=== PATIENT | male | born 1990 | race Caucasian/White ===

== ENCOUNTER 2022-12-07 07:55 | Emergency (ER) | payer SELFPAY ==
[2022-12-07 07:58] VITALS: BP 163/106; PULSE 100; RESP 16; TEMP 36.6; O2SAT 97
--- NOTE | 2022-12-07 08:00 | DI.RAD_ITS ---
Exam(s) XR KNEE RT 3V AP,LAT,AISHWARYA EXAM: XR KNEE RT 3V AP,LAT,AISHWARYA CLINICAL HISTORY: right knee pain and swelling. TECHNIQUE: 2D digital imaging was performed. Three views. COMPARISON: No exams were available for comparison FINDINGS: BONES: No acute fracture is present. No bony destructive lesion is seen. JOINTS: The knee is normally aligned. No joint effusion is seen. Mild periarticular spurring. SOFT TISSUE: Normal. IMPRESSION: Mild degenerative changes DATA REPOSITORY: RADIATION DOSE DELIVERED:
--- NOTE | 2022-12-07 08:02 | ED.GENADUL_ITS ---
Discharge Plan Disposition Patient Disposition: Home Condition: Good Discharge Details Chief Complaint: Orthopedic Clinical Impression: Tear of medial meniscus of right knee Primary Care Provider: None,None ED Provider: Cinda Rosado Home Meds and New Rx's Prescriptions: No Action ibuprofen 800 MG tablet 800 mg PO Q8H PRN (Reason: Pain) Qty: 15 0RF multivitamin 1 EACH capsule 1 cap PO DAILY Discharge Instructions Instructions: Swollen Knee Joint (ED), Meniscus Tear (ED) Additional Instructions: 1. Alternate at times milligrams of acetaminophen with 400 to 600 mg of ibuprofen as needed for pain. 2. Wear your knee brace while at work and when ambulating. You may remove it for sleeping and bathing. You may use your crutches as needed for ambulation. 3. You should recheck your blood pressure when you are not in pain or under stress. I would keep a log of the readings to bring with you to your primary care follow-up. 4. You should be contacted by orthopedics and primary care for follow-up appointments. 5. Return to the emergency department for any new or worrisome symptoms such as fever, chills, other joint pain or any concerns. Stand Alone Forms: Work Release Discharge Data Discharge Physician: Cinda Rosado Medical Decision Making This is a 32-year-old male who injured his right knee several years ago and has had intermittent right knee pain since then. Several days ago while vacuuming he pivoted had acute pain in the right knee. He does endorse intermittent swelling. He denies any other joint pain or swelling. He denies any rashes or fever. He denies any recent tick bites. This is most likely a meniscal tear given that he has intermittent effusions. Other considerations are an ACL or PCL tear although the pain is in the medial aspect of the right knee. He does e ndorse a clicking/foreign body sensation in the right knee which would also be consistent with a tear of the medial meniscus. My plan is to obtain plain films and if negative discharge him with a knee brace. He already has crutches. We will give him a referral to orthopedics and primary care and I will write him a note to return to work in 3 days. He is mildly hypertensive. We will recheck it and I have advised him to have his blood pressure checked at a time when he is not in pain or under stress. We will also give him a referral to primary care. I do not think he has a tickborne illness. Differential Diagnosis Differential Diagnosis: Tear of the right medial meniscus, medial collateral ligamentous tear Medical Records Medical records reviewed: Yes I reviewed the patient's medical records. Imaging Data Radiologic Study: Imaging: X-Ray (Right knee) Radiologist's impression: Mild degenerative changes. HPI General Mode of arrival: ambulatory . Date/Time Provider Initiated Documentation: 12/07/22 08:02 . Limitations to Documentation: no limitations . Information obtained by: patient, RN notes reviewed and old records reviewed . History of Present Illness described as similar to prior episodes, with intensity rated at 8. Quality is described as aching and constant, HPI Narrative: Time seen was 8:02 AM in bed 8. The patient is a healthy 32-year-old male who tells me a few years ago he rolled his knee and developed pain in the right knee. He did not seek medical care at the initial injury. Over the past several years he has noted intermittent right knee pain associated with a popping sensation. A few days ago while vacuuming at home he pivoted and felt a pop in the right knee. The next day he had increasing pain. He is now complaining of a constant pain that ranges from 6-8 out of 10 in severity. He has associated intermittent swelling. He has sensation of loose body inside his knee. He also complains of mild clicking. He has crutches at home which she has been using as needed. He takes ibuprofen intermittently as needed. He denies any radiation of the pain. The pain is aggravated by ambulation and pivoting. He denies any other joint pain, fever or chills, rashes or tick bites. 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 He denies any calf pain or swelling, chest pain, shortness of breath, rashes or any additional symptoms. He would like to return to work. He currently does not have a primary care provider and has not seen anyone else for the knee pain. Related Data Home Medications Medication Instructions Recorded Confirmed multivitamin 1 cap PO DAILY 01/05/17 04/03/17 ibuprofen 800 mg tablet 800 mg PO Q8H PRN Pain ##15 04/03/17 Previous Rx's Medication Instructions Recorded ibuprofen 800 mg tablet 800 mg PO Q8H PRN Pain ##15 04/03/17 Allergies Allergy/AdvReac Type Severity Reaction Status Date / Time house dust AdvReac Mild Unverified 04/03/17 12:14 Review of Systems Narrative: see hpi Constitutional Constitutional: Denies chills, Denies fever(s) and Denies headache(s) ENT Ears, Nose, Mouth, and Throat: Denies headache(s) Cardiovascular Cardiovascular: Denies chest pain and Denies dyspnea Respiratory Respiratory: Denies dyspnea Gastrointestinal Gastrointestinal: Denies abdominal pain Musculoskeletal Musculoskeletal: Denies numbness and Denies tingling Comments: No other joint pain or swelling other than the right knee Integumentary/Breasts Skin/Breast: Reports as per HPI and Denies rash Comments: No rashes. No tick bites, no redness. Neurologic Neurologic: Denies headache(s), Denies numbness and Denies tingling Allergic/Immunologic Allergic/Immunologic: Reports system reviewed and no additional complaints, except as documented PFSH All Active Problems (Updated 12/07/22 @ 08:44 by Cinda Rosado MD) Tear of medial meniscus of right knee (Acute) Social History Smoking/Tobacco Use Status: Never Smoking risk assessment performed?: Yes Drug use: Never Do you feel safe in your relationship?: Yes Exam Narrative Exam Narrative: The patient is a well-developed well-nourished male who is slightly hypertensive with an elevated BMI. He is not febrile. His GCS is 15. Const General: cooperative, healthy appearing, comfortable, no acute distress, well developed, well groomed and well hydrated Nutritional Appearance: average body habitus and well nourished Orientation: alert, awake and oriented x3 HENMT Head: normal to inspection, normocephalic and atraumatic Ears: hearing grossly normal bilaterally and external ears normal General nose exam: external nose normal, nares normal and no nasal discharge Face and sinus: normal facial exam, sinuses nontender and face symmetric Mouth: other (Normal phonation. The patient is handling secretions.) Eyes General: appearance normal, both eyes and all related structures Eyelids: eyelids normal Conjunctivae: conjunctivae normal Sclera: sclerae normal Cornea: corneas normal Pupils: PERRL EOM: EOM intact bilaterally and No nystagmus Neck Neck: normal visual inspection, full ROM, no lymphadenopathy, no meningeal signs, trachea midline and supple Lymphatic: no lymphadenopathy noted Chest Chest: normal inspection of the chest Resp Effort & Inspection: normal respiratory effort, able to speak in complete sentences, no audible wheezes, no nasal flaring, no respiratory distress, no retractions, no stridor, not tachypneic, no tracheal deviation, no use of accessory muscles, No prolonged expiratory phase and other (Normal inspiratory to expiratory ratio.) Auscultation: clear to auscultation bilaterally, no rales, no rhonchi, no wheezes and no rubs Tactile Fremitus: tactile fremitus absent Cardio Jugular venous pressure: no JVD Palpation: normal PMI Rate: regular rate Rhythm: regular rhythm Heart Sounds: S1 normal, S2 normal, no gallops, no murmurs and no rubs GI Inspection: non-distended Palpation: soft, no guarding and nontender Back/Spine/Pelvis Back: no CVA tenderness and No back tenderness Cervical Spine: normal cervical lordosis, cervical ROM normal, No cervical muscular tenderness, No pain with cervical ROM, No cervical spinal tenderness and No step off deformity Thoracic/Lumbar Spine: thoracic and lumbar spine normal to inspection, No thoracic spinal tenderness and No lumbar spinal tenderness Skin General skin exam: no rashes or lesions noted, turgor normal, no petechiae, no purpura and other (Skin is normal for ethnicity.) Lesions: no lesions Rashes: no rashes Trauma: no lacerations or abrasions Neuro General: patient alert, patient awake, patient oriented x3, moves all extremities, no meningeal signs, no focal motor deficits and CN's II-XI intact bilaterally Cranial Nerves: CN's II-XI intact bilaterally, PERRL, accommodation normal, EOM intact bilaterally, no nystagmus, facial strength normal, hearing normal and no nystagmus Cognition: normal cognition Speech: speech normal Motor: muscle tone normal throughout and strength 5/5 throughout Sensory Exam: no sensory deficits noted Extrem General: normal to inspection, full ROM, capillary refill normal, no clubbing, cyanosis or edema and no calf tenderness Other: His extremities are within normal limits. Except for the right knee. There is no obvious swelling. He has full range of motion of his right hip, knee, ankle and foot. There is no obvious effusion. There is no warmth or erythema. There is no laxity with anterior draw sign or with varus or valgus stressing. He is neurovascular intact distally. The remainder of the extremities unremarkable. Psych Appearance: grossly normal Affect: normal affect Attitude: cooperative Thought Process: normal Thought Content: normal Insight: insight good Judgment: judgment good Other: The patient appears to have capacity make medical decisions. Course The patient was offered but declined acetaminophen. Reevaluation(s) Time: 08:48 Reevaluation: I have reviewed the patient's x-rays. I have advised him that he will have follow-up with orthopedics and primary care. I have advised him to alternate acetaminophen every 3 hours with ibuprofen as needed for pain and to return to emergency department for any new or worrisome symptoms. He voiced understanding agree with the discharge plan. All his questions and concerns were addressed prior to discharge
--- NOTE | 2022-12-07 08:17 | NUR.NOTE ---
Pt referred to Ortho care due to Rt Knee Pain. Pt referred to Care Management for assistance obtaining a Provider. Nursing Note:
[2022-12-07 08:40] VITALS: BP 164/107; PULSE 88; O2SAT 97
--- NOTE | 2022-12-07 20:16 | NUR.NOTE ---
Pt placed on care management list to establish primary care.
== END 2022-12-07 09:06 | disposition home or self-care (01) ==
PROVIDERS: Emergency Provider Emergency Medicine Emergency Medical Services
DX: S83.241A Other tear of medial meniscus, current injury, right knee, initial encounter (principal); X50.1XXA Overexertion from prolonged static or awkward postures, initial encounter; Y93.E3 Activity, vacuuming; Y92.012 Bathroom of single-family (private) house as the place of occurrence of the external cause; Y99.9 Unspecified external cause status
CPT/HCPCS: 73562; 99283

== ENCOUNTER 2022-12-28 08:30 | Emergency (ER) | payer SELFPAY ==
[2022-12-28 08:34] VITALS: BP 148/80; PULSE 85; RESP 20; TEMP 36.8; O2SAT 98
--- NOTE | 2022-12-28 09:19 | NUR.NOTE ---
Pt referred to Care Management for assistance obtaining a Primary Care Provider.
--- NOTE | 2022-12-28 09:22 | ED.GENADUL_ITS ---
Discharge Plan Disposition Patient Disposition: Home Condition: Stable Discharge Details Clinical Impression: Acute knee pain Primary Care Provider: Unknown,Unknown ED Provider: Leelee Villatoro Home Meds and New Rx's Prescriptions: Continued ibuprofen 800 MG tablet 800 mg PO Q8H PRN (Reason: Pain) Qty: 15 0RF multivitamin 1 EACH capsule 1 cap PO DAILY Discharge Instructions Instructions: Knee Pain (ED) Additional Instructions: Please follow-up as needed Stand Alone Forms: Work Release Discharge Data Discharge Date/Time-TO BE ENTERED AT DEPARTURE: 12/28/22 09:18 Medical Decision Making 31-year-old male presenting for return to work note, right knee without swelling or tenderness, complete range of motion intact, referred back to primary care physician for further management and treatment, work note supplied, distal pulses intact, no redness, no calf swelling or tenderness appreciated, sensation intact distally Return precautions reviewed and patient expressed understanding HPI General Date/Time Provider Initiated Documentation: 12/28/22 09:02 . HPI Narrative: 32-year-old gentleman presents with resolution of his right knee pain which is thought to be meniscal in nature, requesting to return to work. Denies any current complaints. Related Data Home Medications Medication Instructions Recorded Confirmed multivitamin 1 cap PO DAILY 01/05/17 12/28/22 ibuprofen 800 mg tablet 800 mg PO Q8H PRN Pain ##15 04/03/17 12/28/22 Previous Rx's Medication Instructions Recorded ibuprofen 800 mg tablet 800 mg PO Q8H PRN Pain ##15 04/03/17 Allergies Allergy/AdvReac Type Severity Reaction Status Date / Time house dust AdvReac Mild Unverified 04/03/17 12:14 General Stated Complaint: Recheck LUKAS: 5 PFSH All Active Problems (Updated 12/28/22 @ 09:08 by STEVE Bailon) Acute knee pain (Acute) Tear of medial meniscus of right knee (Acute) Social History Smoking/Tobacco Use Status: Never Smoking risk assessment performed?: Yes Alcohol Intake: current Alcohol Intake frequency: a few times a week Alcohol type: beer Drug use: Occasionally Substance use type: marijuana Housing: house Do you feel safe at home: Yes Do you feel safe in your relationship?: Yes Course Vital Signs Vital signs: Vital Signs Temperature 36.8 C 12/28/22 08:34 Pulse 85 12/28/22 08:34 Respiratory Rate 20 12/28/22 08:34 Blood Pressure 148/80 H 12/28/22 08:34 Pulse Oximetry 98 12/28/22 08:34 Temperature 36.8 C 12/28/22 08:34 Temperature Source Oral 12/28/22 08:34 Pulse 85 12/28/22 08:34 Respiratory Rate 20 12/28/22 08:34 Respiratory Effort Normal, Non-Labored 12/28/22 08:51 Blood Pressure 148/80 H 12/28/22 08:34 Blood Pressure Position Sitting 12/28/22 08:34 Pulse Oximetry 98 12/28/22 08:34 Oxygen Delivery Method Room Air 12/28/22 08:34 Oxygen Flow Rate 0 12/28/22 08:34 Pain Level 0 12/28/22 08:34
== END 2022-12-28 09:18 | disposition home or self-care (01) ==
PROVIDERS: Emergency Provider Physician Assistant
DX: M25.561 Pain in right knee (principal)

== ENCOUNTER 2023-07-20 08:38 | Emergency (ER) | payer SELFPAY ==
[2023-07-20 08:47] VITALS: BP 169/100; PULSE 76; RESP 18; TEMP 36.5; O2SAT 98
--- NOTE | 2023-07-20 09:03 | ED.GENADUL_ITS ---
Discharge Plan Disposition Patient Disposition: Home Condition: Stable Discharge Details Clinical Impression: Popping of right knee joint, Elevated blood pressure reading Primary Care Provider: Unknown,Unknown ED Provider: Gianni Beltran Home Meds and New Rx's Prescriptions: Continued ibuprofen 800 MG tablet 800 mg PO Q8H PRN (Reason: Pain) Qty: 15 0RF multivitamin 1 EACH capsule 1 cap PO DAILY Discharge Instructions Instructions: Hypertension (ED) Additional Instructions: Your blood pressure was elevated today at 169/100. This is too high. Please follow-up with the primary care physician. Additional diagnostic testing and treatment may be necessary. Please use knee immobilizer and crutches over the next 1 week. Limit activities that cause pain. Apply ice and elevate the leg for 10 to 15 minutes 4 times a day. Please follow-up with orthopedics. Return to the ER immediately for any worsening or new concerning symptoms. Stand Alone Forms: Work Release Referrals: [facility] [Provider Group] HPI General Mode of arrival: ambulatory . Date/Time Provider Initiated Documentation: 07/20/23 09:03 . Limitations to Documentation: no limitations . Information obtained by: patient . HPI Narrative: 33-year-old male presents with chief complaint of right knee pain. Patient notes he was getting up to the bathroom this morning and felt a popping sensation in his knee. He had pain since the incident. Denies falling or direct trauma. Patient notes this has happened multiple times in the past after a remote injury playing softball. He has been told he has a torn meniscus and is not yet sought surgical intervention. Patient here specifically requesting work note through Monday to allow him to rest. He has no other concerns or complaints. Related Data Home Medications Medication Instructions Recorded Confirmed multivitamin 1 cap PO DAILY 01/05/17 07/20/23 ibuprofen 800 mg tablet 800 mg PO Q8H PRN Pain ##15 04/03/17 07/20/23 Previous Rx's Medication Instructions Recorded ibuprofen 800 mg tablet 800 mg PO Q8H PRN Pain ##15 04/03/17 Allergies Allergy/AdvReac Type Severity Reaction Status Date / Time house dust AdvReac Mild Other (See Unverified 07/20/23 08:51 Comment) General Stated Complaint: Orthopedic LUKAS: 4 Review of Systems All systems reviewed & are unremarkable except as noted in HPI and below Constitutional Constitutional: Denies fever(s) Exam Const General: cooperative and no acute distress Cardio Rate: regular rate and not tachycardic Rhythm: regular rhythm Neuro General: patient alert, patient awake and tone normal Extrem General: no edema Right lower extremity: knee Details: swelling, normal ROM and other (patella nl); no tenderness and no ecchymosis Course Vital Signs Vital signs: Vital Signs Temperature 36.5 C 07/20/23 08:47 Pulse 76 07/20/23 08:47 Respiratory Rate 18 07/20/23 08:47 Blood Pressure 169/100 H 07/20/23 08:47 Pulse Oximetry 98 07/20/23 08:47 Temperature 36.5 C 07/20/23 08:47 Temperature Source Temporal Artery Scan 07/20/23 08:47 Pulse 76 07/20/23 08:47 Respiratory Rate 18 07/20/23 08:47 Respiratory Effort Normal, Non-Labored 07/20/23 08:51 Blood Pressure 169/100 H 07/20/23 08:47 Blood Pressure Position Sitting 07/20/23 08:47 Pulse Oximetry 98 07/20/23 08:47 Oxygen Delivery Method Room Air 07/20/23 08:47 Oxygen Flow Rate 0 07/20/23 08:47 Medical Decision Making 33-year-old male with history of intermittent popping sensation and subsequent discomfort of his right knee over the past few years after softball injury. Patient had an episode this morning while ambulating to the bathroom. Suspect meniscal injury. Plan for knee immobilizer and crutches and follow-up with orthopedics. Usual customary discharge instructions reviewed. Also noted was elevated blood pressure. Patient was informed of this. He was advised to follow-up with a primary care physician and understands importance of this follow-up. Quality:SDOH Health Related Social Needs: No Data to Display PFSH All Active Problems (Updated 07/20/23 @ 09:17 by Gianni Beltran MD) Elevated blood pressure reading (Acute) Popping of right knee joint (Acute) Social History Smoking/Tobacco Use Status: Never Smoking risk assessment performed?: Yes Alcohol Intake: current Alcohol Intake frequency: a few times a week Alcohol type: beer Drug use: Daily Substance use type: marijuana Housing: house Do you feel safe at home: Yes Do you feel safe in your relationship?: Yes PAWSS Have you Been Recently Intoxicated or Drunk Within the Last 30 days?: No Have you Ever Experienced Previous Episodes of Alcohol Withdrawal?: No Have you ever Experienced Withdrawal Seizures?: No Have you ever Experienced Delirium Tremens(DT)s?: No Have you ever undergone Alcohol Rehabilitation Treatment (i.e, inpt ot outpatient treatment programs)?: No Have you ever Experienced Blackouts?: No Have you ever Combined Alcohol with other Downers within the last 90 days?: No Have you ever Combined Alcohol with any other Substance of Abuse during the last 90 days?: No Positive Blood Alcohol level on Presentation? [PCS.BAL]: No Evidence of Increased Autonomic Activity (i.e. HR>120, tremor, sweating, ag itation, nausea)?: No Result: 0
== END 2023-07-20 09:23 | disposition home or self-care (01) ==
PROVIDERS: Emergency Provider Student in an Organized Health Care Education/Training Program
DX: M25.561 Pain in right knee (principal); R29.898 Other symptoms and signs involving the musculoskeletal system; R03.0 Elevated blood-pressure reading, without diagnosis of hypertension
CPT/HCPCS: 99282; 99283

== ENCOUNTER 2023-08-17 08:32 | Emergency (ER) | payer SELFPAY ==
--- NOTE | 2023-08-17 08:30 | DI.RAD_ITS ---
Exam(s) XR KNEE RT 4V AP,LAT,AISHWARYA,PAT EXAM: XR KNEE RT 4V AP,LAT,AISHWARYA,PAT CLINICAL HISTORY: Right knee pain. TECHNIQUE: 2D digital imaging was performed of the right knee. Five views obtained. Merchant, AP, la teral and PA tunnel views were obtained. COMPARISON: CR XR KNEE RT 3V AP,LAT,AISHWARYA from 12/07/2022 FINDINGS: BONES: No acute fracture is present. No bony destructive lesion is seen. JOINTS: There is mild narrowing of the medial femoral tibial joint. Osteophytes are seen in all 3 efren int compartments. No joint effusion is seen. SOFT TISSUE: Normal. IMPRESSION: Mild degenerative changes are seen in the right knee. DATA REPOSITORY: RADIATION DOSE DELIVERED:
[2023-08-17 08:35] VITALS: BP 176/102; PULSE 84; RESP 18; O2SAT 97
--- NOTE | 2023-08-17 08:38 | W.ED.GENAD ---
Discharge Plan Disposition Patient Disposition: Home Discharge Details Clinical Impression: Popping of right knee joint, Blood pressure elevated without history of HTN Primary Care Provider: Unknown,Unknown ED Provider: Kiet Freeman Home Meds and New Rx's Prescriptions: Continued ibuprofen 800 MG tablet 800 mg PO Q8H PRN (Reason: Pain) Qty: 15 0RF multivitamin 1 EACH capsule 1 cap PO DAILY Discharge Instructions Additional Instructions: You were seen in the emergency department for your knee pain. Your x-ray showed no sign of any fractures. You are receiving a work note. Please return to the emergency department if you develop fevers worsening pain or any difficulty breathing. A primary care provider has been contacted for you by care management. They will follow-up as you have an elevated blood pressure and may likely need to start on blood pressure medicines. Stand Alone Forms: Work Release HPI General Date/Time Provider Initiated Documentation: 08/17/23 08:38. HPI Narrative: MDM This is an overall very well-appearing normothermic and not tachycardic 33-year-old male with acute on chronic right knee pain for which patient will undergo repeat plain films. No pain out of proportion to suggest necrotizing soft tissue infection. No significant trauma to suggest knee dislocation so I did not feel that the patient required an angiogram of his lower extremity to assess for popliteal arterial injury. No calf pain to suggest DVT. Good range of motion of the right knee and no fevers so doubt septic joint. Right foot warm and well-perfused so I am not concerned for critical limb ischemia. Good range of motion and no swelling so my suspicion is low for gout. No erythema to suggest cellulitis. No fluctuance to suggest abscess. No erythema to suggest Lyme arthritis. Patient is able to straight leg raise so I am not concerned for quadriceps tendon injury. Patient requested a work note which I will provide him. He has a knee immobilizer and crutches. 9:45 AM Plain films negative for any acute osseous abnormalities. I have asked health community support associate Renee to have the patient seen in the next 10 days by primary care provider as he has never had a normal blood pressure reading throughout all his hospital visits. I advised him of his elevated blood pressures and said that he would likely benefit from reassessment in the primary care office with the potential for outpatient oral antihypertensives. I advised him to return to the ED for any fevers or worsening pain. He understood his return indications and was discharged with empiric trial of expectant outpatient management. Chronic conditions affecting the care of the patient: N/A History obtained from an outside historian: N/A External record review: N/A Medications: Patient declined oral analgesia in the ED but received ice Social determinants of health affecting disposition: N/A Management discussed with: N/A Treatment/interventions considered: N/A Response to therapies provided: N/A HPI This is a 33-year-old male with no past significant medical history arrived to the emergency department via private vehicle in the setting of right knee pain. Patient reports that he he was seen earlier this month with right knee pain. He said that last night when he rolled over in bed he felt a popping in his right knee. He did not take any falls. He has never had any surgeries to his right knee. He did drink beers last night but he does not drink every day. Denies history of withdrawal. He works standing on his feet at a [employer]. He is requesting a work note. He denies any numbness and tingling in his right foot. No fevers no shortness of breath. No history of gout. No recent tick bites. Past 2 return to work in 2 days. He has no pain in his calf. He is aware that he has elevated blood pressure. Exam General: Well-appearing in no acute distress speaking in complete sentences. Head: Normocephalic, atraumatic. Eye: Extraocular eye movements intact. No conjunctival injection. No scleral icterus. Ear, nose, mouth, throat: Grossly normal inspection. Normal voice, handling secretions normally. Neck: Trachea midline. Cardiovascular: Well-perfused distal extremities. Respiratory: Nonlabored respiration. Gastrointestinal: Nondistended abdomen. Musculoskeletal: Right knee with no significant trauma. No significant laxity. No lacerations to right knee. No ecchymoses. Right foot warm and well-perfused with 2+ right PT and DP pulse. 5 out of 5 strength right foot dorsi and plantarflexion. Patient is able to straight leg raise on the right. His calf is no tenderness. He is able to fully extend his right knee. He is able to flex his right knee to approximately 90 degrees. No significant right knee effusion. Skin: Normal for age and race, grossly normal temperature and turgor. No acute rash. Neurologic: Alert and appropriate, no apparent acute deficits. GCS 15. Psychiatric: Mood and manner are appropriate. Grooming and personal hygiene are appropriate. Related Data Home Medications Medication Instructions Recorded Confirmed multivitamin 1 cap PO DAILY 01/05/17 08/17/23 ibuprofen 800 mg tablet 800 mg PO Q8H PRN Pain ##15 04/03/17 08/17/23 Previous Rx's Medication Instructions Recorded ibuprofen 800 mg tablet 800 mg PO Q8H PRN Pain ##15 04/03/17 Allergies Allergy/AdvReac Type Severity Reaction Status Date / Time house dust AdvReac Mild Other (See Unverified 08/17/23 08:43 Comment) General Stated Complaint: Orthopedic LUKAS: 4 Course Vital Signs Vital signs: Vital Signs Pulse 84 08/17/23 08:35 Respiratory Rate 18 08/17/23 08:35 Blood Pressure 176/102 H 08/17/23 08:35 Pulse Oximetry 97 08/17/23 08:35 Pulse 84 08/17/23 08:35 Respiratory Rate 18 08/17/23 08:35 Blood Pressure 176/102 H 08/17/23 08:35 Pulse Oximetry 97 08/17/23 08:35 Oxygen Delivery Method Room Air 08/17/23 08:35 Oxygen Flow Rate 0 08/17/23 08:35 Medical Decision Making Quality:SDOH Health Related Social Needs: No Data to Display PFSH All Active Problems (Updated 08/17/23 @ 08:46 by Kiet Freeman MD) Blood pressure elevated without history of HTN (Acute) Elevated blood pressure reading (Acute) Popping of right knee joint (Acute) Social History Smoking/Tobacco Use Status: Never Smoking risk assessment performed?: Yes Alcohol Intake: current Alcohol Intake frequency: a few times a week Alcohol type: beer Drug use: Daily Substance use type: marijuana Housing: house Do you feel safe at home: Yes Do you feel safe in your relationship?: Yes
[2023-08-17 08:42] VITALS: TEMP 37.1
[2023-08-17 09:56] VITALS: BP 144/102; PULSE 83; RESP 18; O2SAT 95
== END 2023-08-17 10:10 | disposition home or self-care (01) ==
LOC: ER 08:51
PROVIDERS: Emergency Provider Emergency Medicine
DX: M25.561 Pain in right knee (principal); R03.0 Elevated blood-pressure reading, without diagnosis of hypertension
CPT/HCPCS: 99283; 73564

== ENCOUNTER 2024-06-20 08:52 | Emergency (ER) | payer SELFPAY ==
[2024-06-20 08:54] VITALS: BP 172/115; PULSE 76; TEMP 36.5; O2SAT 96
--- NOTE | 2024-06-20 09:10 | ED.GENADUL_ITS ---
Discharge Plan Disposition Patient Disposition: Home Condition: Stable Discharge Details Clinical Impression: Head injury ED Provider: Lily Tatum Home Meds and New Rx's Prescriptions: No Action ibuprofen 800 MG tablet 800 mg PO Q8H PRN (Reason: Pain) Qty: 15 0RF multivitamin 1 EACH capsule 1 cap PO DAILY Discharge Instructions Instructions: Minor Head Injury, Adult ED Stand Alone Forms: Work Release Discharge Data Discharge Physician: Lily Tatum [facility] General Date/Time Provider Initiated Documentation: 06/20/24 09:04 . HPI Narrative: 34-year-old male presents for evaluation of head injury. Patient states that he went out to get his mail this morning when he slipped and fell on ice. He hit the back of his head. He did not have any loss of consciousness. He states that he was dazed briefly. Denies any headache. No nausea or vomiting. No numbness or tingling to his extremities. No weakness in his extremities. No visual changes. No neck or back pain. He is not on any blood thinners. Related Data Home Medications ?Medication ?Instructions ?Recorded ?Confirmed multivitamin 1 cap PO DAILY 01/05/17 06/20/24 ibuprofen 800 mg tablet 800 mg PO Q8H PRN Pain ##15 04/03/17 06/20/24 Previous Rx's ?Medication ?Instructions ?Recorded ibuprofen 800 mg tablet 800 mg PO Q8H PRN Pain ##15 04/03/17 Allergies Allergy/AdvReac Type Severity Reaction Status Date / Time house dust AdvReac Mild Other (See Unverified 06/20/24 08:57 Comment) General Stated Complaint: HeadInjury LUKAS: 3 Review of Systems Narrative: Remainder of review of systems otherwise negative except for as noted in the HPI x 10. Exam Narrative Exam Narrative: General: non-toxic, no respiratory distress, comfortable HEENT: normocephalic, atraumatic, lids and lashes normal, PERRL, EOMI, anicteric sclera, no conjunctival injection, TMs clear bilaterally, moist oral mucosa Neck: No vertebral tenderness Card: regular rate and rhythm, S1S2, no murmurs, rubs, or gallops Lungs: good air entry, clear to auscultation bilaterally. no wheezes, rales, rhonchi, or retractions Abd: soft, non-tender, non-distended, normal bowel sounds, no rebound or guarding, no peritoneal signs Musculoskeletal: No vertebral tenderness, full range of motion of arms and legs, no tenderness to palpation. no clubbing, cyanosis, or edema Neurologic: Neurologic exam: GSC 15, CN 2-12 intact bilaterally, speech normal, strength normal, sensation intact distally in all four extremities, gait normal, 2+ biceps tendon reflexes, normal finger to nose, normal rapid alternating movements, no pronator drift Psych: alert and oriented Skin: no petechiae, no lesions, warm and dry Course Vital Signs Vital signs: Vital Signs Temperature 36.5 C 06/20/24 08:54 Pulse 76 06/20/24 08:54 Blood Pressure 172/115 H 06/20/24 08:54 Pulse Oximetry 96 06/20/24 08:54 Temperature 36.5 C 06/20/24 08:54 Temperature Source Oral 06/20/24 08:54 Pulse 76 06/20/24 08:54 Blood Pressure 172/115 H 06/20/24 08:54 Blood Pressure Position Sitting 06/20/24 08:54 Pulse Oximetry 96 06/20/24 08:54 Oxygen Delivery Method Room Air 06/20/24 08:54 Oxygen Flow Rate 0 06/20/24 08:54 Medical Decision Making 34-year-old male presents for evaluation of head injury. At time my evaluation he is neurologically intact. NIH of score equals 0. No vertebral tenderness. No signs or symptoms of intracranial hemorrhage. Patient neurologically intact. CT not indicated at this time. Patient counseled on post-concussive syndrome and signs/symptoms requiring re-evaluation. Patient agrees with plan and will return with worsening symptoms. Quality:SDOH Health Related Social Needs: No Data to Display PFSH All Active Problems Head injury (Acute) Social History Smoking/Tobacco Use Status: Never Smoking risk assessment performed?: Yes Alcohol Intake: current Alcohol Intake frequency: a few times a week Alcohol type: beer Drug use: Daily Substance use type: marijuana Housing: house Do you feel safe at home: Yes Do you feel safe in your relationship?: Yes PAWSS Have you Been Recently Intoxicated or Drunk Within the Last 30 days?: No Have you Ever Experienced Previous Episodes of Alcohol Withdrawal?: No Have you ever Experienced Withdrawal Seizures?: No Have you ever Experienced Delirium Tremens(DT)s?: No Have you ever undergone Alcohol Rehabilitation Treatment (i.e, inpt ot outpatient treatment programs)?: No Have you ever Experienced Blackouts?: No Have you ever Combined Alcohol with other Downers within the last 90 days?: No Have you ever Combined Alcohol with any other Substance of Abuse during the last 90 days?: No Positive Blood Alcohol level on Presentation? [PCS.BAL]: No Evidence of Increased Autonomic Activity (i.e. HR>120, tremor, sweating, agitation, nausea)?: No Result: 0
== END 2024-06-20 09:20 | disposition home or self-care (01) ==
LOC: ER 09:23
PROVIDERS: Emergency Provider Emergency Medicine Emergency Medical Services
DX: S09.8XXA Other specified injuries of head, initial encounter (principal); W10.8XXA Fall (on) (from) other stairs and steps, initial encounter; Y93.89 Activity, other specified
CPT/HCPCS: 99283

== ENCOUNTER 2024-07-30 09:46 | Emergency (ER) | payer SELFPAY ==
[2024-07-30 09:51] VITALS: BP 222/130; PULSE 76; RESP 15; TEMP 36.2; O2SAT 99
--- NOTE | 2024-07-30 09:52 | ED.GENADUL_ITS ---
Discharge Plan Disposition Patient Disposition: Home Discharge Details Clinical Impression: Acute pain of left foot Primary Care Provider: None,None ED Provider: Kiet Freeman Home Meds and New Rx's Prescriptions: Continued ibuprofen 800 MG tablet 800 mg PO Q8H PRN (Reason: Pain) Qty: 15 0RF multivitamin 1 EACH capsule 1 cap PO DAILY Discharge Instructions Additional Instructions: You were seen in emergency department for your foot pain. As we discussed there is no sign of any fractures on your x-ray. Please follow-up with your primary care provider if your symptoms do not improve with rest ice and elevation. Please ice your foot 20 minutes on 20 minutes off throughout the day today. You may bear weight as tolerated on your left foot however please wear a hard soled shoe or boot as we discussed. If you develop a rash fevers or have any other concerns please return to the emergency department. Also your blood pressure was elevated in the emergency department. A primary care provider will be arranged for you. Please return to the emergency department if you develop a headache chest pain or shortness of breath. For your pain please take medications as follows: 1. Take acetaminophen (Tylenol), 1,000 mg (two 500 mg tabs) every 6 hours [2. Take ibuprofen (Advil), 400 mg every 6 hours.] Stand Alone Forms: Work Release Discharge Data Discharge Date/Time-TO BE ENTERED AT DEPARTURE: 07/30/24 10:45 HPI General Date/Time Provider Initiated Documentation: 07/30/24 09:52 . HPI Narrative: MDM This is an overall very well-appearing normothermic and not tachycardic 34-year-old male with left distal foot tenderness concerning for fracture for which patient will undergo plain films. No pain out of proportion to suggest necrotizing soft tissue infection. No midfoot instability to suggest Lisfranc injury. No left lateral foot tenderness to suggest Alba fracture. Left foot warm well-perfused so I am not concerned for critical limb ischemia so I do not feel the patient requires a CT angiogram with runoffs. No fluctuance to suggest abscess. No erythema to suggest cellulitis. No history of gout nor swelling to suggest gouty arthritis. No fevers nor significant swelling to suggest septic joint. Patient medicated himself with ibuprofen ibuprofen earlier this morning so we will provide acetaminophen. 1. Left foot pain. The x-ray results are normal, indicating no significant fractures. The pain is likely due to a minor ligament or tendon irritation. He is advised to rest the foot and wear hard-soled shoes or a boot to offload pressure. [id number] pain relievers such as Tylenol or ibuprofen are recommended for pain management. A work note will be provided for today and tomorrow. If the condition worsens over the next week, he should return for a follow-up visit or consult his primary care physician. A repeat x-ray or an MRI may be considered if there is no improvement. 2. Elevated blood pressure. His blood pressure is significantly elevated today, which he attributes to stress and recent alcohol consumption. Repeat blood pressure in the 160s systolic. He is advised to have his blood pressure rechecked by a primary care provider. I have asked health ED coordinator Ursula to have the patient established with a PCP. He also tells me that he is starting to exercise more. If he experiences symptoms such as chest pain, headaches, or vomiting, he should seek immediate medical attention. HPI The patient presents for evaluation of left foot pain. He reports an incident at work on Monday where he experienced a sensation nico to a pop in his left foot while turning. Initially, he did not perceive any discomfort; however, upon waking up on Monday, he found it challenging to bear weight on the affected foot. The pain has persisted into Monday, and due to his occupation, which requires prolonged standing, he is concerned about his ability to perform his duties. He describes the pain as sharp and tight, particularly noticeable after periods of rest followed by movement. He also reports tenderness between his toes and difficulty wearing shoes due to the pain. He has no history of gout and reports occasional alcohol consumption but no intravenous drug use. He also reports no systemic symptoms such as fever. He has already undergone an x-ray examination and has been managing the pain with Advil. He has a history of a right ankle injury sustained a few years ago. His blood pressure is elevated today, which he attributes to stress and recent alcohol consumption. He has recently resumed physical exercise. Exam General: Well-appearing in no acute distress speaking in complete sentences. Head: Normocephalic, atraumatic. Eye: Extraocular eye movements intact. No conjunctival injection. No scleral icterus. Ear, nose, mouth, throat: Grossly normal inspection. Normal voice, handling secretions normally. Neck: Trachea midline. Cardiovascular: Well-perfused distal extremities. Respiratory: Nonlabored respiration. Gastrointestinal: Nondistended abdomen. Musculoskeletal: Left foot warm well-perfused with cap refill less than 2 seconds in the left toes. No rash to left foot. No fluctuance. Intact PT and DP pulses on the left. Patient does have left distal foot tenderness primarily on the dorsal and lateral surface. No erythema. No tenderness to toes. No ecchymosis. No signs of trauma. Skin: Normal for age and race, grossly normal temperature and turgor. No acute rash. Neurologic: Alert and appropriate, no apparent acute deficits. Psychiatric: Mood and manner are appropriate. Grooming and personal hygiene are appropriate. Related Data Home Medications ?Medication ?Instructions ?Recorded ?Confirmed multivitamin 1 cap PO DAILY 01/05/17 07/30/24 ibuprofen 800 mg tablet 800 mg PO Q8H PRN Pain ##15 04/03/17 07/30/24 Previous Rx's ?Medication ?Instructions ?Recorded ibuprofen 800 mg tablet 800 mg PO Q8H PRN Pain ##15 04/03/17 Allergies Allergy/AdvReac Type Severity Reaction Status Date / Time house dust AdvReac Mild Other (See Unverified 07/30/24 09:54 Comment) General LUKAS: 3 Medical Decision Making Quality:SDOH Health Related Social Needs: No Data to Display PFSH All Active Problems (Updated 07/30/24 @ 10:26 by Kiet Freeman MD) Acute pain of left foot (Acute) Social History Smoking/Tobacco Use Status: Never Smoking risk assessment performed?: Yes Alcohol Intake: current Alcohol Intake frequency: a few times a week Alcohol type: beer Drug use: Daily Substance use type: marijuana Housing: house Do you feel safe at home: Yes Do you feel safe in your relationship?: Yes
--- NOTE | 2024-07-30 10:00 | DI.RAD_ITS ---
Exam(s) XR FOOT LT COMPLETE EXAM: XR FOOT LT COMPLETE CLINICAL HISTORY: Left foot pain. TECHNIQUE: 2D digital imaging was performed of the left foot. Three images were obtained. AP, obli que and lateral views were obtained. COMPARISON: No exams were available for comparison FINDINGS: BONES: No acute fracture is present. No bony destructive lesion is seen. There is a small enthesophyt e at the posterior calcaneus. JOINTS: No dislocation present. SOFT TISSUE: Normal. IMPRESSION: No acute fracture or dislocation. DATA REPOSITORY: RADIATION DOSE DELIVERED:
[2024-07-30] MEDS: Acetaminophen 500 MG TAB 1000 MG PO (10:23)
[2024-07-30 10:40] VITALS: BP 167/119; PULSE 74; RESP 12; O2SAT 100
== END 2024-07-30 10:45 | disposition home or self-care (01) ==
PROVIDERS: Emergency Provider Emergency Medicine
DX: M79.672 Pain in left foot (principal)
CPT/HCPCS: 99283 ×2; 73630